=== PATIENT | male | born 1995 | race American Indian/Alaskan Native ===

== ENCOUNTER 2020-11-22 21:23 | Emergency (ER) | payer OTHER ==
[~2020-11-22] VITALS: Ht 172.7 cm; Wt 72.7 kg
[2020-11-22] MEDS ORDERED: LORazepam 2 mg/ml vial IM ONE ×2 (21:40→22:10)
[2020-11-22 22:01] VITALS: BP 125/77
--- NOTE | 2020-11-22 22:14 | NUR ---
pt continues to scream and yell extremely loud at staff. security and officer at bedside also.
== END 2020-11-22 22:25 ==
LOC: ER 21:24
DX: R45.1 Restlessness and agitation (principal); Z02.89 Encounter for other administrative examinations
CPT/HCPCS: 96372; 99284; J2060